=== PATIENT | female | born 1940 | race Caucasian/White ===

== ENCOUNTER 2025-02-24 11:08 | Outpatient (AMB) | payer MEDICARE, SELFPAY ==
--- NOTE | 2025-02-24 11:31 | A.OFFVIS_ITS ---
Intake Visit Reasons: 6M SZ Allergies Sulfa (Sulfonamide Antibiotics) Allergy (Unknown, Verified 02/24/25 11:37) Unknown Medication List - Last Reconciled 02/24/25 by Denisa Lopez CNP alendronate mg PO amlodipine 10 mg PO DAILY cholecalciferol (vitamin D3) 125 mcg PO DAILY levetiracetam 1,000 mg PO TID 90 days metoprolol succinate ER 50 mg PO DAILY phenytoin sodium extended (Dilantin Extended) 100 mg PO Q8H HPI Comments Details: She was doing okay. She was taking levetiracetam and brand name Dilantin three times a day, no medication side effects. No seizures. Neuropathy symptoms were more bothersome with colder weather, more numbness with thick and heavy feeling to feet. Walking with walker, no recent falls. Sleep was generally okay. She tried gabapentin in the past with side effects. Slipped off bed in 07/2024 and re-injured coccyx. Fell in 04/2023 after slipping on rugs in a loving with coccugeal injury. Initially she was in a wheel chair, now walks with walker. Has support from son who lives nearby. Last seizure on Nov 17, 2015 in the car with her son and she started pushing away for 1 minute and not responding. No confusion. Feet feel thick and heavy, numbness in feet for years with no external grinder in toes. Had L3 compression. [facility] Medical History (Updated 02/24/25 @ 11:36 by Denisa Lopez CNP) Peripheral neuropathy Seizure disorder Review of Systems Const Denies chills, Denies daytime sleepiness, Denies difficulty sleeping, Denies fatigue, Denies fever(s), Denies frequent falls, Denies headache(s), Denies increased appetite, Denies poor appetite, Denies snoring, Denies weakness, Denies weight gain and Denies weight loss Eyes Denies loss of vision ENT Denies vertigo, Denies dizziness, Denies headache(s) and Denies neck pain Card Denies chest pain at rest, Denies chest pain with activity, Denies syncope, Denies leg edema, Denies palpitations, Denies dyspnea and Denies dyspnea on exertion Resp Denies cough, Denies dyspnea, Denies dyspnea on exertion and Denies snoring GI Denies abdominal pain, Denies constipation, Denies heartburn, Denies diarrhea and Denies nausea Denies urinary frequency, Denies urinary incontinence and Denies urinary urgency Musc Denies abnormal gait, Denies back pain, Denies myalgias, Denies arthralgias, Denies neck pain, Reports numbness and Reports tingling Neuro Denies abnormal gait, Denies vertigo, Denies dizziness, Denies syncope, Denies frequent falls, Denies headache(s), Denies lack of coordination, Denies loss of vision, Denies memory loss, Reports numbness, Denies Other visual disturbances, Denies restless legs, Denies seizure-like activity, Reports tingling, Denies paresthesias, Denies tremor(s) and Denies weakness Psych Denies anxiety, Denies depression, Denies auditory hallucinations, Denies memory loss and Denies visual hallucinations Endo Denies fatigue and Denies palpitations Physical Exam Const Other: General Appearance:? normal, in no acute distress. Heart:? S1, S2 normal, no murmurs. Lungs:? clear anteriorly and posteriorly. Musculoskeletal:? normal. Extremities:? no edema. Psych:? alert, oriented, cognitive function intact, cooperative with exam. Neuro Other: Abnormal Neurological Findings:?Impaired vibration below medial malleolus. Absent reflexes in LE. Walking with walker. Mental Status: alert and oriented X 3. Normal attention, orientation, memory, and affect. Cranial Nerves: Pupils are equal, round, and reactive to light. External ocular muscles are intact. Visual hough are full, no ptosis. Face is symmetrical, no facial weakness or droop. Facial sensations are normal. Tongue protrudes in midline. Palate elevates symmetrically. Shoulder shrugging is normal Motor Examination: As above. Sensory Exam: As above. Coordination: No ataxia. No titubation. Gait Exam: With walker. Cerebellar Signs: [id number] is okay. Extrapyramidal System: No tremor, rigidity with normal facial expressions. No bradykinesia. No bradyphrenia. Normal arm swing and posture. No propulsion or retropulsion. Speech: Normal. Results Reviewed Results Reviewed: 08/30/23 NCV/EMG LE Axonal sensory and motor peripheral neuropathy, predominately motor, in the lower extremities. Significant change sincel last NCV/EMG done in 2014. EMG in the left L4-S1 innervated muscles is consistent with chronic distal neuropathic changes. . 2008 and 2014 NCV LE normal. Assessment & Plan Assessment & Plan (1) Seizure disorder: Code(s): G40.909 - Epilepsy, unspecified, not intractable, without status epilepticus Category: Medical Plan: Continue levetiracetam 1000mg 1 tablet three times a day. Continue Dilantin 100mg 1 capsule every 8 hours - Name Brand Only (2) Peripheral neuropathy: Code(s): G62.9 - Polyneuropathy, unspecified Category: Medical Qualifiers: Peripheral neuropathy type: polyneuropathy, unspecified Qualified Code(s): G62.9 - Polyneuropathy, unspecified Plan: She was interested in trying medication. She tried gabapentin in the past which did not work well for her. Start amitriptyline 10mg 1 tablet at bedtime, use/side effects reviewed. Continue to use walker. Follow up in 3 months or sooner as needed. Plan Meds tried: gabapentin Medications: New amitriptyline 10 mg PO BEDTIME 90 tabs 1RF 90 days Coding Level of Care Code Est Pt Level 4 (03235) Diagnoses Seizure disorder G40.909 Peripheral polyneuropathy G62.9 Peripheral neuropathy type: polyneuropathy, unspecified
== END 2025-02-24 11:49 | disposition home or self-care (01) ==
PROVIDERS: PCP Family Medicine; Referring Provider Family Medicine; Visit Provider Registered Nurse
DX: G40.909 Epilepsy, unspecified, not intractable, without status epilepticus (principal); G62.9 Polyneuropathy, unspecified
CPT/HCPCS: 99214

== ENCOUNTER → 2025-02-24 11:08 | Outpatient (BNVA) | payer MEDICARE, SELFPAY | PROVIDERS: PCP Family Medicine; Referring Provider Family Medicine; Visit Provider Registered Nurse | DX: G40.909 Epilepsy, unspecified, not intractable, without status epilepticus (principal); G62.9 Polyneuropathy, unspecified | CPT/HCPCS: 99212 ==